=== PATIENT | female | born 1995 | race Caucasian/White ===

== ENCOUNTER 2018-02-06 04:16 | Emergency (ER) | END 2018-02-06 05:10 | disposition home or self-care (01) ==

== ENCOUNTER 2018-03-11 22:42 | Emergency (ER) | END 2018-03-12 03:11 | disposition home or self-care (01) ==

== ENCOUNTER 2019-01-06 10:51 | Emergency (ER) | payer OTHER ==
[~2019-01-06] VITALS: Ht 157.5 cm; Wt 62.1 kg
[~2019-01-06 10:51] MED LIST: CIPR500T4 PO; CYCL10TA7 PO; HYDR-3498 PO; HYDR-4011 PO; IBUP-1542 PO; MAG-19 PO; METR500T PO; NAPR-985 PO; OMEP20CA9 PO; ONDA4TAB14 PO; ONDA4TAB35 PO; RANI150T35 PO
[2019-01-06 10:56] VITALS: BP 108/53; PULSE 72; RESP 18; Ht 157.5 cm; Wt 62.1 kg
[2019-01-06] MEDS ORDERED: ONDANSETRON (ODT) 4 MG TAB ODT STA (11:32)
[2019-01-06] MEDS ORDERED: ONDA4TAB14 PO (12:22)
[2019-01-06] MEDS ORDERED: BUTA1CAP38 PO (12:22)
--- NOTE | 2019-01-06 13:28 | ERD ---
ER Documentation Chief Complaint Chief Complaint MALDONADO, VOMITED X 1 HPI 23-year-old female presenting with headache and one episode of vomiting today. Patient states she took ibuprofen earlier today and the headache was resolved. Patient is states that she feels mildly weak from her right and vomiting. Patient has no history of migraines and no history of tension headaches. Patient states that the headache is on bilateral temporal lobes with a pressure type sensation. She denies any chest pain or shortness of breath denies any visual changes. No fevers. Denies medical problems. NKDA. Surgical history of plastic surgery on her face. Social history smokes marijuana daily. Drug use denies ROS All systems reviewed and are negative except as per history of present illness. Medications Home Meds Active Scripts Uuhjtfkrag-Zfpnqwvbtmafw-Ewhydomg* (Fioricet*) 50-300-40 Mg Capsule, 1 CAP PO Q4H PRN for HEADACHE, #30 CAP Prov:RICHARD DEAN PA-C 01/06/19 Ondansetron (Ondansetron Odt) 4 Mg Tab.rapdis, 4 MG PO Q6H PRN for NAUSEA AND/OR VOMITING, #10 TAB Prov:RICHARD DEAN PA-C 01/06/19 Ondansetron (Ondansetron Odt) 4 Mg Tab.rapdis, 4 MG PO Q6H PRN for NAUSEA AND/OR VOMITING, #20 TAB Prov:IRIS URBINA NP 03/12/18 Hydrocodone/Acetaminophen (Energy 5-325 Tablet) 1 Each Tablet, 1 TAB PO Q6H PRN for SEVERE PAIN LEVEL 7-10, #20 TAB Prov:IRIS URBINA NP 03/12/18 Metronidazole* (Flagyl*) 500 Mg Tablet, 500 MG PO TID for 10 Days, TAB Prov:IRIS URBINA NP 03/12/18 Ciprofloxacin Hcl* (Ciprofloxacin Hcl*) 500 Mg Tablet, 500 MG PO BID for 10 Days, TAB Prov:IRIS URBINA NP 03/12/18 Ranitidine Hcl* (Zantac*) 150 Mg Tablet, 150 MG PO BID PRN for EPIGASTRIC PAIN, #30 TAB Prov:IRIS URBINA NP 02/06/18 Magaldrate/Simethicone* (Mylanta*) 355 Ml Susp, 30 ML PO QID PRN for GASTROINTESTINAL UPSET, #1 BOTTLE Prov:MATEOIRIS TEE [employer] SETTER 02/06/18 Ondansetron (Ondansetron Odt) 4 Mg Tab.rapdis, 4 MG PO Q6H PRN for NAUSEA AND/OR VOMITING, #10 TAB Prov:ROHINIIRIS GAMEZ [employer] SETTER 02/06/18 Ibuprofen* (Motrin*) 600 Mg Tab, 600 MG PO Q6, #20 TAB Prov:S[place] INorma [employer] SETTER 10/23/15 Ondansetron Hcl* (Zofran* ODT) 4 mg -ODT Tab.disper, 4 MG PO Q6 PRN for NAUSEA AND/OR VOMITING, #10 TAB Prov:AAKASH WAHL 04/21/15 Ranitidine Hcl* (Zantac*) 150 Mg Tablet, 150 MG PO QHS PRN for PAIN, #15 TAB Prov:AAKASH WAHL 04/21/15 Omeprazole* (Prilosec*) 20 Mg Capsule.dr, 20 MG PO BID for 15 Days, CAP Prov:AAKASH WAHL 04/21/15 Naproxen* (Naprosyn*) 500 Mg Tablet, 500 MG PO BID PRN for PAIN AND/OR INFLAMMATION, #30 TAB Prov:RICHARD DEAN PA-C 01/07/15 Cyclobenzaprine Hcl* (Cyclobenzaprine Hcl*) 10 Mg Tablet, 10 MG PO TID, #15 TAB Prov:RICHARD DEAN PA-C 01/07/15 Hydrocodone Bit-Acetaminophen* (Energy*) 5-325 Mg Tab, 1 TAB PO Q6 PRN for PAIN, #15 TAB Prov:RICHARD DEAN PA-C 01/07/15 Allergies Allergies: Coded Allergies: No Known Allergy (Unverified , 01/07/15) PMhx/Soc History of Surgery: Yes (face ) Anesthesia Reaction: No Hx Neurological Disorder: No Hx Respiratory Disorders: No Hx Cardiac Disorders: No Hx Psychiatric Problems: No Hx Miscellaneous Medical Probl: No Hx Alcohol Use: No Hx Substance Use: Yes (marijuana) Hx Tobacco Use: No FmHx Family History: No diabetes, No coronary disease, No other Physical Exam Vitals Vital Signs Date Temp Pulse Resp B/P (MAP) Pulse Ox O2 O2 Flow FiO2 Time Delivery Rate 01/06/19 97.3 72 18 108/53 99 10:56 (71) Physical Exam GENERAL: The patient is well-appearing, well-nourished, in no acute distress CHEST: Clear to auscultation bilaterally. There are no rales, wheezes or rhonchi. HEART: Regular rate and rhythm. No murmurs, clicks, rubs or gallops. EXTREMITIES: Equal pulses bilaterally. There is no peripheral clubbing, cyanosis or edema. No focal swelling or erythema. Full range of motion. NEUROLOGIC: Alert and oriented. Cranial nerves II through XII intact. Motor strength in all 4 extremities with 5 out of 5 strength. Sensation grossly intact. Normal speech and gait. SKIN: There is no apparent rash or petechiae. The skin is warm and dry. Results 24 hrs Laboratory Tests Test 01/06/19 11:47 01/06/19 11:48 Bedside Urine pH (LAB) 8.5 Bedside Urine Protein (LAB) Trace Bedside Urine Glucose (UA) Negative Bedside Urine Ketones (LAB) Negative Bedside Urine Blood 2+ Bedside Urine Nitrite (LAB) Negative Bedside Urine Leukocyte Esterase (L Negative POC Beta HCG, Qualitative NEGATIVE Current Medications Medications Dose Sig/River[place] Start Time Status Last (Trade) Ordered Route PRN Stop Time Admin Dose Reason Admin Ondansetron 4 mg ONCE STAT 01/06/19 DC 01/06/19 HCl (Zofran ODT 11:32 11:45 Odt) 01/06/19 11:34 Procedures/MDM ER course: Zofran given in ED. P.o. challenge performed in ED. Urinalysis negative. MDM: 23-year-old female presenting with a headache. Patient's headache resolved with ibuprofen so I do not feel blood work or imaging is indicated. Patient is having vomiting so we will give Zofran p.o. challenge. Patient tolerated p.o.'s in the ER and vitals are stable. I have low suspicion for dehydration. I considered meningitis or sepsis and I have low suspicion at this time as patient is stable vitals and exam is non-concerning. I have low suspicion for intracranial hemorrhage or mass is neuro exam is within normal limits and heada jake resolved after pain medication was taken. Patient is discharged with strict ER precautions and told to follow-up with primary care within 1 to 2 days for close evaluation. Patient is told symptoms change or worsen to return immediately to the ER. All questions answered at discharge Departure Diagnosis: Primary Impression: Nausea Additional Impression: Headache Condition: Stable Patient Instructions: Nausea Additional Instructions: FOLLOW UP WITH YOUR PRIMARY CARE PHYSICIAN TOMORROW.Return to this facility if you are not improving as expected. RICHARD DEAN PA-C Jan 06, 2019 13:28
== END 2019-01-06 12:44 | disposition home or self-care (01) ==
LOC: FTE 10:51
DX: R11.0 Nausea (principal)
CPT/HCPCS: 81003; 81025; Z7502; Z7610; 99283